=== PATIENT | female | born 1935 | race Caucasian/White ===

== ENCOUNTER → 2021-11-12 | Outpatient (CLI) | payer OTHER ==
--- NOTE | 2021-11-12 13:19 | BD ---
EXAMINATION TYPE: Axial Bone Density DATE OF EXAM: 11/12/2021 COMPARISON: 01-29-2016 CLINICAL HISTORY: 86 years year old Female. ICD-10 CODE: M81.0 KNOWN OSTEOPOROSIS Height: 60IN Weight: 98 FRAX RISK QUESTIONS: Secondary Osteoporosis: 3. Menopause before 45: 52 RISK FACTORS HISTORY OF: Family History of Osteoporosis: MOTHER Active: YES Lost more than 2 inches in height since high school: YES 4 INCHES MEDICATIONS: Additional Medications: NONE Additional History: EXAM MEASUREMENTS: Bone mineral densitometry was performed using the [employer]. Bone mineral density as measured about the Lumbar spine is: ----- L1-L4(G/cm2): 0.922 T Score Values are as follows: ----- L1: -2.7 ----- L2: -2.0 ----- L3: -1.5 ----- L4: -2.6 ----- L1-L4: -2.2 Bone mineral density has: Increased 1.6% since study of: 01-29-2016 Bone mineral density about the R hip (g/cm2): 0.671 Bone mineral density about the L hip (g/cm2): 0.639 T Score values are as follows: -----R Neck: -2.6 -----L Neck: -2.9 -----R Total: -2.6 -----L Total: -2.7 Bone mineral density has: Decreased -6.4% since study of: 01-29-2016 FRAX%s: The graph provided illustrates a 16.5% chance for a major osteoporotic fx and a 6.9% chance f or the hips probability for fx in 10 years time. IMPRESSION: Osteoporosis (T Score less than -2.5) remains present. There is increased fracture risk and therapy is usually indicated based on age. Re-Screen 1-2 years. NOTE: T-SCORE=SD OF THE YOUNG ADULT MEAN.
== END | disposition home or self-care (01) ==
LOC: RADBDWWP 10:39
PROVIDERS: ATTEND Family Medicine
DX: M81.0 Age-related osteoporosis without current pathological fracture (principal); Z78.0 Asymptomatic menopausal state
CPT/HCPCS: 77080